=== PATIENT | male | born 1985 | race Caucasian/White ===

== ENCOUNTER → 2025-02-08 | Day surgery (SDC) | payer MEDICAID ==
[~2025-02-08] VITALS: Ht 160 cm; Wt 91.2 kg
[~2025-02-08] MED LIST: ACETAMINOPHEN 1,000MG/100ML PREMIX IV PRN; BUPIVACAINE HCL/PF 0.5% (5MG/ML) 10ML ONE; CEFAZOLIN SODIUM 1000MG/VIAL ONE; FAMOTIDINE 20MG/2ML VIAL IV ONE; FAMOTIDINE 20MG/2ML VIAL IV PRN; FENTANYL CITRATE/PF 50MCG/ML 2ML VIAL ONE; HYDRALAZINE 20MG/ML VIAL IV PRN; HYDROMORPHONE HCL/PF 1MG/ML INJ IV PRN; LABETALOL 5MG/ML 4ML INJ IV PRN; LACTATED RINGERS 1,000 ML IV SCH; LIDOCAINE HCL 1% 20ML VIAL ONE; LORAZEPAM 2MG/ML UD SYRINGE IV PRN; MEPERIDINE HCL/PF 25MG/ML CPJ IV PRN; METF-416 PO; METOCLOPRAMIDE HCL 10MG/2ML VIAL ONE; MIDAZOLAM HCL 2 MG/2 ML VIAL ONE; ONDANSETRON HCL 4MG/2ML INJ IV PRN; ONDANSETRON HCL 4MG/2ML INJ ONE; PROPOFOL 200MG/20ML VIAL IV ONE; SKIN ADHESIVE 0.7 GM EA TOP ONE
== END | disposition home or self-care (01) ==
LOC: OR 05:09
PROVIDERS: ATTEND Surgery
DX: D17.5 Benign lipomatous neoplasm of intra-abdominal organs (principal); E11.9 Type 2 diabetes mellitus without complications; E78.2 Mixed hyperlipidemia; Z79.899 Other long term (current) drug therapy; Z98.890 Other specified postprocedural states; Z79.84 Long term (current) use of oral hypoglycemic drugs
CPT/HCPCS: 22903; 82962; J3010; J0665; J0690; J1308; J2003; J2765; J2250; J2405; J2704